=== PATIENT | female | born 1935 | race African-American/Black ===

== ENCOUNTER 2019-05-05 09:31 | Inpatient (IN) | payer BC ==
[~2019-05-05] VITALS: Ht 154.9 cm; Wt 68.0 kg
[2019-05-05] VITALS (11 sets, daily range): BP systolic 92–175
--- NOTE | 2019-05-05 09:31 | NUR ---
BROUGHT IN BY FAMILY VIA WHEELCHAIR/WALKER, PLACED IN BED #8 AND TRIAGED. REPORT GIVEN TO HERMELINDO.
--- NOTE | 2019-05-05 09:33 | NUR ---
PTS FAMILY STATES THAT PT HAS BEEN GETTING WEAKER AND WEAKER OVER LAST FEW MONTHS, COUGHING A LOT WITH NOW BLOODY SPUTUM. FAMILY STATES THAT PT HAD A CT CHEST DONE WITH SHOWED A LEFT LUNG MASS, NEEDS ANOTHER CT WITH BIOPSY--AWAITING APPROVAL. FAMILY STATES PT IS ONLY ABLE TO SLEEP IN TRIPODING POSITION AND HAS A SIGNIFICANT WEIGHT LOSS RECENTLY. PT LIVES BY HERSELF BUT FOR THE LAST 2 DAYS BEEN STAYING WITH DAUGHTER. PMD IS IN [place], [place]
--- NOTE | 2019-05-05 09:40 | NUR ---
ER Dr. Ovalles at bedside examining patient.
--- NOTE | 2019-05-05 09:40 | NUR ---
Patient came into the ER with shortness of breath and coughing blood. Did not witness any blood in cough. Patient is tachypnic with respiration of 34 with use of accessory muscles. Patient SPO2 97% and patient is AOx4. Patient denies any pain or dizziness.
[2019-05-05] MEDS ORDERED: NACL 0.9% 1,000 ML IV ONE (09:49)
[2019-05-05] MEDS ORDERED: cefTRIAXone 1 GM IVPB PREMIX 50 ML IV ONE (10:00)
[2019-05-05] MEDS ORDERED: ALBUTEROL SULFATE 0.083% 2.5 MG/3 ML VIAL.NEB INH ONE ×2 (10:00→11:45)
[2019-05-05] MEDS ORDERED: IPRATROPIUM BROM 0.5 MG/2.5 ML VIAL.NEB (ATROVENT) INH ONE ×2 (10:00→11:45)
--- NOTE | 2019-05-05 10:45 | NUR ---
rPatient transported to radiology via gurney, accompanied by Clayton.
[2019-05-05 10:57] LABS: BASOPHILS % (AUTO) 0.3 % (0.0-2.0); EOSINOPHILS # (AUTO) 0.1 K/uL (0.0-0.4); HEMATOCRIT 32.2 % (36-48); HEMOGLOBIN 9.9 g/dL (12.0-16.0); LYMPHOCYTES % (AUTO) 12.1 % (20.5-51.5); MEAN CORPUSCULAR HEMOGLOBIN 23 pg (27-31); MEAN CORPUSCULAR HGB CONC 31 % (32-36); MEAN CORPUSCULAR VOLUME 75 fL (79.0-98.0); MONOCYTES # (AUTO) 0.5 K/uL (0.0-1.0); MONOCYTES % (AUTO) 6.8 % (1.7-9.3); NEUTROPHILS # (AUTO) 6.4 K/uL (1.8-7.7); NEUTROPHILS % (AUTO) 79.8 % (40.0-70.0); PLATELET COUNT (AUTO) 329 K/uL (130-430); RED BLOOD CELL COUNT(AUTO) 4.27 MIL/uL (4.2-6.2); RED CELL DISTRIBUTION WIDTH 17.3 % (9.0-15.0)
[2019-05-05 10:57] LABS: BILIRUBIN,URINE NEGATIVE (NEGATIVE); BLOOD, URINE NEGATIVE (NEGATIVE); COLOR,URINE YELLOW (YELLOW); GLUCOSE,URINE NEGATIVE (NEGATIVE); KETONES,URINE NEGATIVE (NEGATIVE); LEUKOCYTE ESTERASE ,URINE NEGATIVE (NEGATIVE); NITRITE, URINE NEGATIVE (NEGATIVE); PROTEIN URINE 1+ (NEGATIVE)
--- NOTE | 2019-05-05 11:00 | NUR ---
Patient was apprehensive laying down to complete CT scan. Contacted RT and accompanied radstaff to provide O2 during procedure and assist in laying patient on CT scan. Patient tolerated without complication.
[2019-05-05 11:02] LABS: CLARITY/URINE HAZY (CLEAR)
[2019-05-05 11:06] LABS: BACTERIA,URINE FEW /HPF (None Seen); MUCUS,URINE 1+ /LPF (None Seen); RBC,URINE NONE SEEN /HPF (0-3); WBC,URINE 0-3 /HPF (0-3)
[2019-05-05 11:07] LABS: ANION GAP 2 (5-15); CALCIUM 9.1 mg/dL (8.4-11.0); CHLORIDE 103 mmol/L (98-107); CREATININE 0.93 mg/dL (0.55-1.30); GLUCOSE 233 mg/dL (70-99); SODIUM SERUM 138 mmol/L (136-145); UREA NITROGEN, BLOOD 18 mg/dL (8-21)
[2019-05-05 11:08] LABS: INR 1.3 (0.8-1.2); PROTHROMBIN TIME 13.3 SECS (9.5-12.5)
[2019-05-05 11:16] LABS: ALANINE AMINOTRANSFERASE 21 U/L (12-78); ALBUMIN 2.3 g/dL (3.4-4.8); ASPARTATE AMINOTRANSFERASE 13 U/L (10-37); TOTAL BILIRUBIN 0.3 mg/dL (0.0-1.0)
[2019-05-05 11:17] LABS: AMYLASE 21 U/L (0-100); LIPASE 28 U/L (73-393)
[2019-05-05] MEDS ORDERED: ASA81 PO (12:04)
[2019-05-05] MEDS ORDERED: COR25 PO (12:04)
[2019-05-05] MEDS ORDERED: LOVA20TA2 PO (12:04)
[2019-05-05] MEDS ORDERED: SODIUM CL 3% FOR INHALATION 15 ML VIAL.NEB INH STA (12:36)
[2019-05-05] MEDS ORDERED: ALBUTEROL SULFATE 0.083% 2.5 MG/3 ML VIAL.NEB INH PRN (12:45)
[2019-05-05] MEDS ORDERED: IPRATROPIUM BROM 0.5 MG/2.5 ML VIAL.NEB (ATROVENT) INH PRN (12:45)
[2019-05-05] MEDS ORDERED: ALBUTEROL SULFATE 0.083% 2.5 MG/3 ML VIAL.NEB INH SCH (13:00)
[2019-05-05] MEDS ORDERED: AZITHROMYCIN 500 MG in NS 250 ML IV SCH (13:00)
[2019-05-05] MEDS ORDERED: IPRATROPIUM BROM 0.5 MG/2.5 ML VIAL.NEB (ATROVENT) INH SCH (13:00)
--- NOTE | 2019-05-05 13:00 | NUR ---
Patient in bed AOx4 in bed. Asking if family can come into the room. Advised due to current policies and Covid 19 we are unable to allow visitors.
[2019-05-05] MEDS ORDERED: cefTRIAXone 1 GM in D5W 50 ML IV SCH (14:00)
--- NOTE | 2019-05-05 14:10 | NUR ---
Patient will be admitted to care of [facility]. Admitted to Tele unit. Will go to room 133A. Belongings list completed. Complete and up to date summary report printed. SBAR report to be given at bedside with opportunity for questions.
--- NOTE | 2019-05-05 14:11 | NUR ---
ADMISSION NOTE Received patient from ER via jo ann, received report from Dov IRIZARRY. Patient admitted with diagnosis of PNA and Lung mass. Patient oriented to hospital routine, call light, toileting and safety-patient verbalized understanding.
--- NOTE | 2019-05-05 14:16 | NUR ---
CONSULTATION PAGED REASON FOR CONSULTATION:PNEUMONIA AND LUNG MASS WAS CONSULT CALLED?Y PERSON WHO WAS NOTIFIED:LEFT A TEXT MESSAGE CONSULTING PHYSICIAN:DELMA QUINONES EVENT MANAGER SPECIALTY:PULMONARY EVENT MANAGER PHONE NUMBER:[phone] REQUESTING PHYSICIAN:MARIA E CRANDALL
--- NOTE | 2019-05-05 14:20 | NUR ---
Suddenly passed out: Patient just moves from a gurney to a bed. She was talking. I'm about to connect V/S machine and Tele box on her , but she just black out her head fail on the pillow from sitting position, non responsive. Call code blue right away, but by the time the team arrive and before V/S showed up on the machine about 1 minute , she has already wakes up talking. Cancel code Blue. Continue connect Tele monitor, check V/S. Will give report to Natalia, primary nurse, and will continue monitor.
--- NOTE | 2019-05-05 15:22 | NUR ---
STAT CONSULT CARDIOLOGY CARDIAC ARRHYTHMIA DR CASTILLO [phone] DR QUAN MENDOZA SODA FOUNTAIN OPERATOR S/W STACI EXCHANGE
--- NOTE | 2019-05-05 15:24 | NUR ---
CONSULTATION PAGED REASON FOR CONSULTATION:CARDIAC ARRYTHMIAS WAS CONSULT CALLED?Y PERSON WHO WAS NOTIFIED:STACI CONSULTING PHYSICIAN:BEATA DIANE PARIMUTUEL CASHIER SPECIALTY:CARDIO PARIMUTUEL CASHIER PHONE NUMBER:[phone] REQUESTING PHYSICIAN:MARIA E CRANDALL
--- NOTE | 2019-05-05 15:30 | NUR ---
TRANSFER PATIENT FROM [facility] ( AFTER CODE BLUE AT 1420 ), RECEIVED NURSING REPORT FROM CADY Vila
--- NOTE | 2019-05-05 15:49 | NUR ---
Sinus pause: Patient is resting and eating on bed, but on the Tele showed that she has 3.84 sec Sinus Pause with asymptomatic. Call Dr. Narvaez and he has ordered to transfer patient to ICU, a manufacturing tech consult.
--- NOTE | 2019-05-05 15:51 | NUR ---
Transfer to ICU and give report to JUAN C Hartley in ICU. Addendum: 05/05/19 at 1555 by Munira Chung RN lucia Hackett of the daughter , is informed about patient is in ICU.
--- NOTE | 2019-05-05 16:00 | NUR ---
DR. QUAN MENDOZA SEE PATIENT ORDERED FOLLOW UP STAT 2 D ECHO CARDIOGRAM, ON DOPAMIN DRIP FOR BRADYCARDIA, , INSERTED BRYAN CATHETER FOR URINE OUTPUT
[2019-05-05] MEDS ORDERED: DOPamine PREMIX 250 ML IV SCH (16:15)
--- NOTE | 2019-05-05 16:22 | NUR ---
Dr. Hatfield in to see pt. Speaks with pts family on the phone. Pt SOB with activity of turning in bed. Unable to lie flat. Pt is anxious. HOB up high. States "Oh Lordy, I can't breath, God help me, God help me". 02 sats on room air 97%. Vigil inserted with return of leda urine. IVF started at 100 cc/hr and zithromax started. SR/SB rate 40's at times. BP stable.
[2019-05-05] MEDS ORDERED: ATROPINE SULFATE 1 MG/10 ML SYRINGE IVP PRN (16:30)
--- NOTE | 2019-05-05 17:00 | NUR ---
DR. ANTOINE SEE PATIENT, ORDERED FOLLOW UP CBC, CMP, CHEST X-RAY IN A.M
[2019-05-05] MEDS: AZITHROMYCIN 500 MG in NS 250 ML IV SCH (17:01)
--- NOTE | 2019-05-05 17:45 | NUR ---
DR. VANCE SEE PATIENT
--- NOTE | 2019-05-05 17:45 | NUR ---
FINISHED 2D ECHO CARDIOGRAM AT BEDSIDE, E.F 70-75 %
--- NOTE | 2019-05-05 19:58 | NUR ---
GIVE COMPLETE NURSING REPORT TO COMPUTER SCIENCE TEACHER MADYSON Vila
--- NOTE | 2019-05-05 20:00 | NUR ---
ASSESSMENT Pt alert/orient to self, time and place. Pt on room air O2 saturation greater than 94%. No c/o SOB. 2 IV sites present, right wrist and left wrist both are patent no redness or swelling noted at sites. IVF infusing well. Skin intact, trace edema present bilateral feet. Pt is coughing up blood tinged sputum.
[2019-05-05] MEDS: IPRATROPIUM/ALBUTEROL SULFATE 3 ML AMPUL.NEB (DUONEB) INH SCH ×2 (20:02→23:22)
[2019-05-05] MEDS ORDERED: CARVEDILOL 25 MG TABLET (COREG) PO SCH (21:00)
--- NOTE | 2019-05-05 23:00 | NUR ---
HEART RATE At patient's bedside when she stated she was feeling dizzy, monitor displaying a bharat HR of 39. Pt instructed to take deep breathes, HR then became tacky 107, she did not loose consciences. Heart rate returned to her baseline of 70's. Pt was then started on 1L/min nasal cannula.
[2019-05-06] VITALS (22 sets, daily range): BP systolic 92–190
[2019-05-06] MEDS: IPRATROPIUM/ALBUTEROL SULFATE 3 ML AMPUL.NEB (DUONEB) INH SCH ×5 (03:53→23:21)
[2019-05-06 05:28] LABS: BASOPHILS % (AUTO) 0.3 % (0.0-2.0); EOSINOPHILS % (AUTO) 0.4 % (0.0-4.0); HEMATOCRIT 30.9 % (36-48); HEMOGLOBIN 9.4 g/dL (12.0-16.0); LYMPHOCYTES # (AUTO) 1.1 K/uL (1.0-5.5); LYMPHOCYTES % (AUTO) 13.9 % (20.5-51.5); MEAN CORPUSCULAR HEMOGLOBIN 23 pg (27-31); MEAN CORPUSCULAR HGB CONC 31 % (32-36); MEAN CORPUSCULAR VOLUME 76 fL (79.0-98.0); MONOCYTES # (AUTO) 0.7 K/uL (0.0-1.0); MONOCYTES % (AUTO) 7.9 % (1.7-9.3); NEUTROPHILS # (AUTO) 6.4 K/uL (1.8-7.7); NEUTROPHILS % (AUTO) 77.5 % (40.0-70.0); PLATELET COUNT (AUTO) 335 K/uL (130-430); RED BLOOD CELL COUNT(AUTO) 4.07 MIL/uL (4.2-6.2); RED CELL DISTRIBUTION WIDTH 17.3 % (9.0-15.0); WHITE BLOOD COUNT (AUTO) 8.3 K/uL (4.8-10.8)
[2019-05-06 06:01] LABS: ALANINE AMINOTRANSFERASE 32 U/L (12-78); ANION GAP 5 (5-15); ASPARTATE AMINOTRANSFERASE 23 U/L (10-37); CALCIUM 8.6 mg/dL (8.4-11.0); CHLORIDE 108 mmol/L (98-107); CREATININE 0.81 mg/dL (0.55-1.30); GLUCOSE 132 mg/dL (70-99); SODIUM SERUM 146 mmol/L (136-145); TOTAL BILIRUBIN 0.3 mg/dL (0.0-1.0); UREA NITROGEN, BLOOD 11 mg/dL (8-21)
--- NOTE | 2019-05-06 06:30 | NUR ---
ASSESSMENT Pt resting quietly, heart rate above 70, Dopamine drip 3Mcg/Kg/Min, Vigil cath draining blood tinge leda urine.
--- NOTE | 2019-05-06 06:58 | NUR ---
Nutrition Update Chavez Scale 17 noted. Pt admitted for Pneumonia and lung mass Diet: regular BMI: 25.6 kg/m2 RD to follow per nutrition care standards.
--- NOTE | 2019-05-06 07:30 | NUR ---
Opening Note Received plan of care via sbar from endorsing nurse Apurva IRIZARRY. Completed patient round.
--- NOTE | 2019-05-06 08:03 | NUR ---
Patient wanted me to contact daughter Roxann to discuss thoracentesis and ct guided biopsy and for consent. Called [phone] Roxann and received consent. Second RN confirmed consent.
--- NOTE | 2019-05-06 09:15 | NUR ---
Patient off unit to radiology for procedure with continuous monitoring, O2, and primary RN following appropriate isolation precautions.
--- NOTE | 2019-05-06 10:45 | NUR ---
Patient return to unit and situated in room. No signs of distress noted.
[2019-05-06] MEDS: cefTRIAXone 1 GM in D5W 50 ML IV SCH (11:30)
--- NOTE | 2019-05-06 14:00 | NUR ---
New consult paged to Dr. Irene, spoke with exchange.
--- NOTE | 2019-05-06 14:33 | NUR ---
1410 sputum collection, tried nts, pt refused, sx deep oropharynx. sat 95% SX THICK SMALL BLOOD TINGED SECRETIONS. Addendum: 05/06/19 at 1435 by Sara Ortega RT Amended: Links added.
--- NOTE | 2019-05-06 14:35 | NUR ---
Dr. Irene called to get report on patient. Provided back ground. No new orders.
[2019-05-06] MEDS: AZITHROMYCIN 500 MG in NS 250 ML IV SCH (15:24)
--- NOTE | 2019-05-06 16:15 | NUR ---
Dr. Yonas PRESTON at bedside. Received orders to DC dopamine.
--- NOTE | 2019-05-06 18:03 | NUR ---
Patient complained of lower back pain 05/23. Patient noticed squirming in bed from side to side. Called Dr. Mora and received order for Tynelol 650 PO table Q6 PRN and Miralax 17 gm daily.
[2019-05-06] MEDS: ACETAMINOPHEN 325 MG TABLET PO PRN (18:14)
--- NOTE | 2019-05-06 19:18 | NUR ---
Closing Note Provided plan of care via sbar to receiving RN Ruddy. Completed patient round.
--- NOTE | 2019-05-06 20:00 | NUR ---
AWAKE, ALERT. ORIENTED X4. ANTSY. STATES SHE HAS SOME BACK DISCOMFORT. ASSISTS WITH REPOSITIONING. ON O2 AT 2L/MIN/NC. POC 99%. BREATH SOUNDS ESSENTIALLY DIMINISHED. OCCASIONALLY EXPECTORATES RED TINGED PHLEGM. SUCTIONS SELF ORALLY VIA YANKAUER. BOWEL SOUNDS (+). PULSES PALPABLE. SKIN W/D. COLOR SATISFACTORY. HOB UP TO COMFORT. SIDE RAILS UP. CALL LIGHTS WITHIN REACH. AFIB. BRYAN CATH PATENT DRAINING CLOUDY VINAYAK URINE WITH SEDIMENTS TO GRAVITY. HERNANDO SCD'S IN PLACE.
--- NOTE | 2019-05-06 22:00 | NUR ---
ABLE TO REPOSITION SELF WELL. CONVERSANT. STATES SHE WANTED TO EAT SEEDLESS RED GRAPES AND WOULD LET HER DAUGHTER BRING HER SOME.
[2019-05-07] VITALS (18 sets, daily range): BP systolic 110–165
--- NOTE | 2019-05-07 | NUR ---
AWAKE, RESTING QUIETLY. NO COMPLAINTS OFFERED AT THIS TIME. VSS. OCCASIONAL MOIST PRODUCTIVE COUGH NOTED WITH MOD AMOUNT OF RED TINGED PHLEGM EXPECTORATED. SUCTIONS SELF ORALLY VIA YANKAUER.
--- NOTE | 2019-05-07 02:00 | NUR ---
AWAKE. NO DISTRESS NOTED. HIGH NESBITT'S POSITION. OCCASIONAL MOIST PRODUCTIVE COUGH NOTED, SUCTIONS SELF EXPECTORATION VIA YANKAUER.
[2019-05-07] MEDS: IPRATROPIUM/ALBUTEROL SULFATE 3 ML AMPUL.NEB (DUONEB) INH SCH ×6 (03:48→23:30)
--- NOTE | 2019-05-07 04:00 | NUR ---
DOZES ON AND OFF. BP LABILE.
--- NOTE | 2019-05-07 05:00 | NUR ---
CHG BATH GIVEN. BACK CARE, BRYAN CARE, SKIN CARE DONE. ASSISTS WITH TURNING. SOB UPON EXERTION. BRYAN HAS LEAK. PARTIAL LINEN CHANGE.
--- NOTE | 2019-05-07 06:00 | NUR ---
UO OLIGURIC. BP LABILE. SUCTIONED AND TURNED Q2 HRS AND PRN. REMAINS IN GUARDED CONDITION.
--- NOTE | 2019-05-07 07:15 | NUR ---
Opening Note Received bedside report from endorsing RN for continuation of care. Received patient awake and resting in bed, denies any pain or SOB at this time. No signs or symptoms of acute distress noted. Bed locked in lowest position, bed alarm on, and call light within reach. Fall and safety precautions in place.
[2019-05-07] MEDS: POLYETHYLENE GLYCOL 3350, 17 GM/ POWD.PACK PO SCH (08:24)
[2019-05-07] MEDS: cefTRIAXone 1 GM in D5W 50 ML IV SCH (09:22)
--- NOTE | 2019-05-07 11:34 | NUR ---
Dr. Narvaez at bedside examining patient. New orders received.
--- NOTE | 2019-05-07 11:37 | NUR ---
Telemetry Status Per Dr. Narvaez, patient is stable to transfer to telemetry unit. Patient will remain in ICU and be monitored as telemetry status until hospital bed becomes available.
--- NOTE | 2019-05-07 12:45 | NUR ---
Dr. Jacobs at bedside examining patient. New orders received. Addendum: 05/07/19 at 1533 by Gabby Willis RN No new orders received.
[2019-05-07] MEDS: AZITHROMYCIN 500 MG in NS 250 ML IV SCH (15:40)
--- NOTE | 2019-05-07 16:35 | NUR ---
Transfer to Telemetry Patient transferred to telemetry unit room 133 on continuous equipment monitor phototypesetting and oxygen using ACLS protocol. ACLS RN present at all times. Endorsed report to Eli CRANE RN using SBAR approach for continuation of care.
--- NOTE | 2019-05-07 16:39 | NUR ---
ADMISSION PT STABLE, OBTAINED INFORMATION FROM PATIENT AND CALLED FAMILY MEMBER, CARA (DAUGHTER) FOR INFORMATION WELL. PT RECEIVING OXYGEN AT 2LPM, TOLERATING WELL. BRYAN CATHETER INTACT AND PATENT, DRAINING WELL. IV LINE INTACT AND PATENT ON LEFT WRIST, NO SIGNS OF INFILTRATION NOTED. EDEMA NOTED ON RIGHT HAND WITH IV LINE, PT DENIES PAIN AT THIS TIME AND NO REDNESS NOTED. WILL MONITOR. ALL NEEDS MET. CALL LIGHT IN REACH. FALL, ASPIRATION, AND AIRBORNE PRECAUTIONS IN PLACE. CONTINUE TO MONITOR.
[2019-05-07] MEDS: ACETAMINOPHEN 325 MG TABLET PO PRN (17:05)
--- NOTE | 2019-05-07 17:05 | NUR ---
D/C RIGHT IV PT C/O PAIN ON RIGHT HAND. ADMINISTERED PRN PAIN MEDS ORDERED PER MD, EDUCATION GIVEN, TOLERATED WELL. D/C RIGHT WRIST IV, IV CATHETER REMOVED INTACT AND DRESSING APPLIED, NO ACTIVE BLEEDING. ALL NEEDS MET. CALL LIGHT IN REACH. CONTINUE TO MONITOR.
--- NOTE | 2019-05-07 18:45 | NUR ---
CLOSING NOTES PT AWAKE, ALERT, AND ORIENTED, SITTING UP WATCHING TELEVISION IN BED. BRYAN CATHETER INTACT AND PATENT, DRAINING WELL. SUCTIONING AT BEDSIDE. IV LINE INTACT AND PATENT, NO SIGNS OF INFILTRATION NOTED. PT DENIES PAIN AT THIS TIME. PT RECEIVING OXYGEN VIA NASAL CANNULA ORDERED PER MD, TOLERATING WELL. NO ACUTE DISTRESS NOTED. ALL NEEDS MET. CALL LIGHT IN REACH. FALL, ASPIRATION, AND AIRBORNE PRECAUTIONS IN PLACE. WILL ENDORSE TO NOC NURSE.
--- NOTE | 2019-05-07 19:50 | NUR ---
INITIAL NOTES PATIENT IS LAYING IN BED AND STABLE. NO S/S OF RESPIRATORY DISTRESS NOTED. PATIENT SUCCESSFULLY DEMONSTRATES USAGE OF CALL LIGHT AT THIS TIME. BED IS LOCKED, ALARMED, AND AT THE LOWEST POSITION. FALL, SAFETY, ASPIRATION, AIRBORNE, AND RESPIRATORY PRECAUTIONS WILL BE IN PLACE THROUGHOUT THE SHIFT. PLAN OF CARE IS DISCUSSED WITH PATIENT.
--- NOTE | 2019-05-07 21:35 | NUR ---
ROUNDING PATIENT IS SLEEPING IN BED AND STABLE. NO S/S OF RESPIRATORY DISTRESS NOTED. CALL LIGHT IN REACH. BED IS LOCKED, ALARMED, AND AT THE LOWEST POSITION.
--- NOTE | 2019-05-08 | NUR ---
ROUNDING PATIENT IS LAYING IN BED AND STABLE. NO S/S OF RESPIRATORY DISTRESS NOTED. CALL LIGHT IN REACH. BED IS LOCKED, ALARMED, AND AT THE LOWEST POSITION.
[2019-05-08 00:37] VITALS: BP_SYST 140
[2019-05-08] MEDS: IPRATROPIUM/ALBUTEROL SULFATE 3 ML AMPUL.NEB (DUONEB) INH SCH ×6 (03:00→23:40)
--- NOTE | 2019-05-08 04:09 | NUR ---
ROUNDING PATIENT IS LAYING IN BED AND STABLE. PATIENT REQUESTED FOR RT AT THIS TIME. RT CALLED. NO S/S OF RESPIRATORY DISTRESS NOTED. CALL LIGHT IN REACH. BED IS LOCKED, ALARMED, AND AT THE LOWEST POSITION.
--- NOTE | 2019-05-08 06:27 | NUR ---
CLOSING NOTES PATIENT IS STABLE AND LAYING IN BED. NO S/S OF RESPIRATORY DISTRESS NOTED. CALL LIGHT IN REACH. BED IS LOCKED, ALARMED, AND AT THE LOWEST POSITION. FALL, SAFETY, ASPIRATION, RESPIRATORY, AND AIRBORNE PRECAUTIONS HAS BEEN IN PLACE THROUGHOUT THE SHIFT. WILL CONTINUE TO MONITOR UNTIL REPORT IS GIVEN TO AM NURSE BY BEDSIDE.
--- NOTE | 2019-05-08 07:15 | NUR ---
received patient aaox 4. lungs bilaterally with crackles bilaterally. productive coughing noted. abdomen soft and non distended. has iv access on the left wrist #22. saline lock. bed in low position, alarmed and locked. call lights within reach. instructed to call for assistance. still on droplet isolation monitoring. vitals signs stable. afebrile.
--- NOTE | 2019-05-08 08:00 | NUR ---
breakfast tray still on the bedside. refused to be taken out said still working on it.
[2019-05-08 08:13] VITALS: BP_SYST 158
[2019-05-08] MEDS: POLYETHYLENE GLYCOL 3350, 17 GM/ POWD.PACK PO SCH (09:04)
[2019-05-08] MEDS: ACETAMINOPHEN 325 MG TABLET PO PRN (09:04)
[2019-05-08 09:52] VITALS: BP_SYST 158
--- NOTE | 2019-05-08 10:30 | NUR ---
due meds given.
[2019-05-08] MEDS: cefTRIAXone 1 GM in D5W 50 ML IV SCH (10:55)
--- NOTE | 2019-05-08 11:46 | NUR ---
refused to removed the breakfast tray at the bedside.
--- NOTE | 2019-05-08 12:02 | NUR ---
Dietitian Recommendations *Recommend: 2gm Na diet w/ Ensure Enlive BID. ONS will provide additional 700 kcal and 40gm protein daily. Please see Nutritional Assessment for details. BENNIE, RACHAEL
[2019-05-08 12:45] VITALS: BP_SYST 111
--- NOTE | 2019-05-08 13:57 | NUR ---
refused to have iv site restarted. both arms swollen for now and painful. as verbalized. placed ice pack on it.
[2019-05-08] MEDS: AZITHROMYCIN 500 MG in NS 250 ML IV SCH (16:15)
[2019-05-08 16:23] VITALS: BP_SYST 123
--- NOTE | 2019-05-08 16:30 | NUR ---
patient refused to have iv insertion. curly charge nurse made aware. made aware.
--- NOTE | 2019-05-08 19:20 | NUR ---
endorsed to incoming nurse Manav IRIZARRY
[2019-05-08 19:40] VITALS: BP_SYST 136
--- NOTE | 2019-05-08 19:40 | NUR ---
INITIAL NOTES PATIENT IS LAYING IN BED AND WATCHING TV. PATIENT IS STABLE. NO S/S OF RESPIRATORY DISTRESS NOTED. PATIENT SUCCESSFULLY DEMONSTRATES USE OF CALL LIGHT. BED IS LOCKED AND AT THE LOWEST POSITION. FALL, SAFETY, ASPIRATION, AND RESPIRATORY PRECAUTIONS WILL BE IN PLACE THROUGHOUT THE SHIFT. PLAN OF CARE IS DISCUSSED WITH PATIENT.
--- NOTE | 2019-05-08 21:40 | NUR ---
PATIENT REFUSED IV, DESPITE EDUCATIONAL EFFORTS. PATIENT REQUESTED IT TO BE STARTED IN THE MORNING. WILL CONTINUE TO EDUCATE.
--- NOTE | 2019-05-08 22:40 | NUR ---
ROUNDING PATIENT SLEEPING IN BED AND STABLE. NO S/S OF RESPIRATORY DISTRESS NOTED. CALL LIGHT IN REACH. BED IS LOCKED, ALARMED,AND AT THE LOWEST POSITION.
--- NOTE | 2019-05-09 00:40 | NUR ---
ROUNDING PATIENT SLEEPING IN BED AND STABLE. NO S/S OF RESPIRATORY DISTRESS NOTED. CALL LIGHT IN REACH. BED IS LOCKED, ALARMED,AND AT THE LOWEST POSITION.
[2019-05-09 00:49] VITALS: BP_SYST 164
--- NOTE | 2019-05-09 02:38 | NUR ---
ROUNDING PATIENT SLEEPING IN BED AND STABLE. NO S/S OF RESPIRATORY DISTRESS NOTED. CALL LIGHT IN REACH. BED IS LOCKED, ALARMED,AND AT THE LOWEST POSITION.
[2019-05-09] MEDS: IPRATROPIUM/ALBUTEROL SULFATE 3 ML AMPUL.NEB (DUONEB) INH SCH ×4 (03:38→15:08)
--- NOTE | 2019-05-09 04:38 | NUR ---
ROUNDING PATIENT SLEEPING IN BED AND STABLE. NO S/S OF RESPIRATORY DISTRESS NOTED. CALL LIGHT IN REACH. BED IS LOCKED, ALARMED,AND AT THE LOWEST POSITION.
--- NOTE | 2019-05-09 07:25 | NUR ---
RECEIVED PATIENT AAOX 4. HAS OXYGEN 2 LNC. VITALS SIGNS STABLE. AFEBRILE. LUNGS BILATERALLY WITH CRACKLES AND SLIGHT WHEEZING NOTED. PATIENT GETTING RESPIRATORY TREATMENT AT THIS TIME. HAS IV ACCESS ON THE LEFT WRIST AND REFUSED TO TAKE IT OUT FOR NOW. BED LOW POSITION, ALARMED AND LOCKED. CALL LIGHTS WITHIN REACH. INSTRUCTED TO CALL FOR ASSISTANCE. PATIENT OFF ON ISOLATION.
--- NOTE | 2019-05-09 07:40 | NUR ---
CLOSING NOTES PATIENT IS STABLE AND LAYING IN BED. NO S/S OF RESPIRATORY DISTRESS NOTED. CALL LIGHT IN REACH. BED IS LOCKED, ALARMED, AND AT THE LOWEST POSITION. FALL, SAFETY, ASPIRATION, AND RESPIRATORY PRECAUTIONS HAS BEEN IN PLACE THOROUGH THE SHIFT. REPORT ENDORSED TO AM NURSE.
[2019-05-09 08:51] VITALS: BP_SYST 157
[2019-05-09] MEDS: POLYETHYLENE GLYCOL 3350, 17 GM/ POWD.PACK PO SCH (09:40)
--- NOTE | 2019-05-09 09:46 | NUR ---
due medication given as ordered.
--- NOTE | 2019-05-09 10:00 | NUR ---
INFORMED DR GR REFUSED TO HAVE IV ACCESS FOR IV ANTIBIOTIC
[2019-05-09] MEDS ORDERED: AMOX-426 PO (11:40)
--- NOTE | 2019-05-09 12:30 | NUR ---
BRYAN CATHETER DISCONTINUE AND REMOVED AT THIS TIME. INSTRUCTED PATIENT TO CALL FOR ASSISTANCE WHEN GOING TO THE BATHROOM.
--- NOTE | 2019-05-09 13:00 | NUR ---
DR BUSH CAME AND EVALUATE THE PATIENT. OKAY TO GO HOME IF OK WITH DR GR
--- NOTE | 2019-05-09 13:30 | NUR ---
PATIENT ASSISTED TO THE BATHROOM VOIDED X 1. NEEDS PANTIE AND PAD.
[2019-05-09 14:00] VITALS: BP_SYST 122
[2019-05-09 14:51] VITALS: BP_SYST 122
--- NOTE | 2019-05-09 15:00 | NUR ---
PATIENT WANTS ON THE CHAIR TO SLEEP AT THIS TIME.
[2019-05-09 16:00] VITALS: BP_SYST 132
--- NOTE | 2019-05-09 16:00 | NUR ---
ASSISTED TO THE BATHROOM WITH THE WALKER. TO VOID AGAIN.
--- NOTE | 2019-05-09 16:30 | NUR ---
IV ACCESS REMOVED AT THIS TIME.
--- NOTE | 2019-05-09 16:30 | NUR ---
[facility] I D BAND REMOVED. REGIONAL DIRECTOR OF ADMISSIONS REMOVED. DISCHARGE INSTRUCTION GIVEN TO THE PATIENT. AND SIGNED AND UNDERSTAND THE INSTRUCTION TO FOLLOW UP WITH THE PCP AND PULMONARY MD AND ONCOLOGIST. SPOKE TO THE DAUGHTER CARA REGARDING FOLLOW UP CARE AND ALSO THE AMOXICILLIN TABLET FOR ANTIBIOTIC TO TAKE. INSTRUCTED TO CALL THE [facility] BEFORE PICKING UP THE MEDICATION.
--- NOTE | 2019-05-09 17:00 | NUR ---
PATIENT BROUGHT BY ZAKIYA SHARPE TO THE LOBBY AND EDGER MACHINE SETTER BY THE SON AND DAUGHTER IN STABLE CONDITION.
--- NOTE | 2019-05-14 16:03 | NUR ---
SS NOTES/DISCHARGE FOLLOW UP CALL: AIR SAMPLER phoned patient @ [phone], no answer. AIR SAMPLER phoned daughter Roxann hernandez @ [phone]. Pt is currently admitted at [facility]. No further calls needed at this time.
== END 2019-05-09 17:00 | disposition home or self-care (01) | DRG 193 ==
LOC: SED 09:31 → STU 12:34 → SIC 15:27 → STU 05-07 16:40
PROVIDERS: ADMIT Internal Medicine Hospice and Palliative Medicine; ATTEND Internal Medicine Hospice and Palliative Medicine
PROC: 0BBL3ZX Excision of Left Lung, Percutaneous Approach, Diagnostic (ICD-10-PCS; principal; 2019-05-06)
PROC: 0W9B3ZZ Drainage of Left Pleural Cavity, Percutaneous Approach (ICD-10-PCS; 2019-05-06)
DX: J18.9 Pneumonia, unspecified organism (principal); E43 Unspecified severe protein-calorie malnutrition; J44.0 Chronic obstructive pulmonary disease with (acute) lower respiratory infection; R04.2 Hemoptysis; J91.8 Pleural effusion in other conditions classified elsewhere; R91.8 Other nonspecific abnormal finding of lung field; D64.9 Anemia, unspecified; E78.5 Hyperlipidemia, unspecified; I10 Essential (primary) hypertension; Z60.2 Problems related to living alone; R09.02 Hypoxemia; N28.9 Disorder of kidney and ureter, unspecified; Z79.899 Other long term (current) drug therapy; Z79.82 Long term (current) use of aspirin; Z87.891 Personal history of nicotine dependence
CPT/HCPCS: 32555; 36415; 36600; 71045; 71250-TC; 80053; 81000-TC; 82150-TC; 82550-TC; 82803-TC; 82962; 83605; 83690-TC; 83880; 84484; 85025; 85379; 85610-TC; 85730-TC; 86710; 87040-TC; 87070-TC; 87081; 87116; 87186-TC; 87205-TC; 88108; 88305; 93005; 93306; 94640; 94760; 96365; 99285; C1729; G0378; J0456; J0461; J0696; J1265; J7030; J7050; J7060; J7131; J7613